=== PATIENT | male | born 1955 | race Caucasian/White ===

== ENCOUNTER 2025-03-18 02:20 | Emergency (ER) | payer MEDICARE, OTHER ==
[~2025-03-18] VITALS: Ht 177.8 cm; Wt 100.2 kg
[2025-03-18] MEDS ORDERED: BENA20TA9 PO (02:49)
[2025-03-18] MEDS ORDERED: DICY20TA11 PO (02:49)
[2025-03-18] MEDS ORDERED: ALPR1TAB7 PO (02:49)
[2025-03-18] MEDS ORDERED: CIME800T PO (02:49)
[2025-03-18] MEDS ORDERED: AMLO2.5T2 PO (02:49)
[2025-03-18] MEDS ORDERED: PHEN15TA2 PO (02:49)
[2025-03-18 03:23] LABS: BASOPHILS # (AUTO) 0.1 K/UL (0.0-0.2); BASOPHILS % (AUTO) 1.1 % (0.0-2.0); DIFFERENTIAL COMMENT 0; EOSINOPHILS # (AUTO) 0.6 K/uL (0.0-0.7); EOSINOPHILS % (AUTO) 4.3 % (0.0-7.0); HEMATOCRIT 43.4 % (36.7-47.1); HEMOGLOBIN 14.4 g/dL (12.5-16.3); LYMPHOCYTES # (AUTO) 2.7 K/uL (0.8-4.8); LYMPHOCYTES % (AUTO) 21.1 % (20.5-51.5); MEAN CORPUSCULAR HEMOGLOBIN 29.8 uug (23.8-33.4); MEAN CORPUSCULAR HGB CONC 33 g/dL (32.5-36.3); MEAN CORPUSCULAR VOLUME 89.5 fL (73.0-96.2); MONOCYTES # (AUTO) 0.5 K/uL (0.1-1.30); MONOCYTES % (AUTO) 3.8 % (0.0-11.0); NEUTROPHILS % (AUTO) 69.7 % (38.5-71.5); PLATELET COUNT (AUTO) 177 K/uL (152-348); RED BLOOD CELL COUNT(AUTO) 4.85 MIL/uL (4.06-5.63); RED CELL DISTRIBUTION WIDTH 15.4 % (12.1-16.2); WHITE BLOOD COUNT (AUTO) 12.9 K/uL (3.6-10.2)
[2025-03-18 03:31] LABS: CALCIUM 9.3 mg/dL (8.5-10.1); CREATININE 1.1 mg/dL (0.6-1.3); POTASSIUM 3.4 mmol/L (3.5-5.1)
[2025-03-18] MEDS ORDERED: PIPERACILLIN/TAZOBACTAM/D5W 50 ML IV ONE (03:31)
[2025-03-18] MEDS ORDERED: ONDANSETRON 4 MG/2 ML VIAL ONE (03:31)
[2025-03-18] MEDS ORDERED: HYDROMORPHONE 2 MG/1 ML DISP.SYRIN ONE (03:32)
[2025-03-18] MEDS: IV NS 1000 ML 1,000 ML IV ONE (03:36)
[2025-03-18] MEDS: HYDROMORPHONE 1 MG/1 ML DISP.SYRIN IV ONE (03:37)
[2025-03-18] MEDS: ONDANSETRON 4 MG/2 ML VIAL IV ONE (03:37)
[2025-03-18] MEDS: PIPERACILLIN SODIUM/TAZOBACTAM 3.375 G in IV DEXTROSE 5% 50 ML IV ONE (03:42)
[2025-03-18 03:44] LABS: BILIRUBIN,TOTAL 0.6 mg/dL (0.2-1.0); TOTAL PROTEIN, SERUM 7.2 g/dL (6.4-8.2)
[2025-03-18] MEDS ORDERED: POTASSIUM CHLORIDE 50 ML ONE (06:57)
[2025-03-18] MEDS: POTASSIUM CHLORIDE 50 ML IV SCH (07:00)
[2025-03-18] MEDS ORDERED: CIPR-262 PO (09:20)
[2025-03-18] MEDS ORDERED: METR500T PO (09:20)
[2025-03-18 11:10] VITALS: BP 138/80; TEMP 98; O2SAT 95
== END 2025-03-18 11:11 | disposition left against medical advice (07) ==
LOC: ER 02:20
DX: K43.6 Other and unspecified ventral hernia with obstruction, without gangrene (principal); R06.02 Shortness of breath; Z79.899 Other long term (current) drug therapy; Z87.891 Personal history of nicotine dependence; Z87.19 Personal history of other diseases of the digestive system
CPT/HCPCS: 99285; 74176; 96365; 96375; 71045; 96361; 87081; 80053; 83880; 83690; 85025; 85610; 85730; 87040 ×2; 84484; 36415; 93005; 83605; J2405; J2543; J3480; J1171; J7040 ×2; A4606; A4663